=== PATIENT | male | born 1950 | race Two or more races ===

== ENCOUNTER 2016-07-23 18:08 | Emergency (ER) | payer OTHER ==
--- NOTE | ~2016-07-23 | ER ---
PATIENT'S NAME: G[facility]LA [facility] AGE: 66 Y [address] ROOM: [place] [address] LOCATION: [facility] ADMIT DATE: 07/23/2016 ER/Outpatient Report DISCHARGE DATE: 07/23/2016 FAMILY PHYSICIAN: Physician, Unknown ATTENDING PHYSICIAN: Solomon Johnston Time of Arrival: 1826 hours. Time of Evaluation: 1835 hours. CHIEF COMPLAINT: "I can't pee." HISTORY OF PRESENT ILLNESS: The patient is a 66-year-old male who presents to the emergency department today with a chief complaint of "I can't pee." He is accompanied by his son who interprets. He reports he has been unable to pee for the past 2 hours. He reports he has a history of similar episodes which I actually saw him for not too long ago. He reports he had to have a catheter at that time. He has seen Dr. Marquis in the past. Denies any fevers or chills. No nausea or vomiting. No diarrhea or constipation. No other complaints at this time. PAST MEDICAL HISTORY: Urinary retention and enlarged prostate. PAST SURGICAL HISTORY: None. SOCIAL HISTORY: The patient denies any tobacco use. Reports occasional alcohol use. Denies any illicit drug use. ALLERGIES: NO KNOWN DRUG ALLERGIES. MEDICATIONS: Flomax. PRIMARY CARE DOCTOR: Kahlil Polo MD. Sees Dr. Marquis with Urology. REVIEW OF SYSTEMS: All systems are reviewed by myself and negative with the exception of those discussed in the HPI and past medical history. PHYSICAL EXAMINATION: [facility]GE[facility] 66 Y [address] ROOM: [place] [address] LOCATION: [facility] ADMIT DATE: 07/23/2016 ER/Outpatient Report DISCHARGE DATE: 07/23/2016 FAMILY PHYSICIAN: Physician, Unknown ATTENDING PHYSICIAN: Solomon Johnston VITAL SIGNS: Blood pressure 160/74, pulse 84, respiratory rate 20, temperature 98.4 tympanic, and oxygen saturation 97% on room air. GENERAL: The patient is a 66-year-old male who appears his stated age, in mild to moderate acute distress secondary to pain in his abdomen. HEENT: Head: Normocephalic, atraumatic. Pupils are equal, round, and reactive to light. Oropharynx is clear. NECK: Supple. There is no nuchal rigidity. CARDIOVASCULAR: Regular rate and rhythm. No murmurs, rubs, or gallops. LUNGS: Clear to auscultation bilaterally. No wheezes, rales, or rhonchi. ABDOMEN: Soft, mild suprapubic tenderness to palpation. No rebound, rigidity, or guarding. Positive bowel sounds. MUSCULOSKELETAL: The patient moves all 4 extremities. SKIN: Warm and dry with no rashes or lesions noted. LABS AND X-RAYS: Urinalysis obtained shows 50 blood, otherwise unremarkable. IMPRESSION: 1. Urinary retention. 2. Initial visit. EMERGENCY DEPARTMENT COURSE: The patient was brought back to the examination room. Seen and evaluated by myself. A bedside ultrasound was performed by myself which does show an enlarged bladder. A Hutson catheter is placed with about 1 L of urine removed. I have discussed results with the patient. I have recommended a close followup with Dr. Marquis in 2 days for re-evaluation. I have discussed return to care instructions including worsening symptoms or any other concerns to return to the emergency department as soon as possible. The patient is agreeable and son is agreeable, and they are without further questions at this time. DISPOSITION: The patient discharged home in good condition. DO MORALES TELLO/duglasl /[id number] d: 07/24/16 0107 t: 07/25/16 1341, OUTPATIENT REPORT
[2016-07-23 19:06] LABS: BILIRUBIN URINE NEGATIVE (NEGATIVE); BLOOD URINE 50 /UL (NEGATIVE); COLOR URINE YELLOW (YELLOW); GLUCOSE URINE NEGATIVE (NEGATIVE); KETONE URINE NEGATIVE (NEGATIVE); LEUKOCYTES URINE NEGATIVE /UL (NEGATIVE); NITRITE URINE NEGATIVE (NEGATIVE); PROTEIN URINE NEGATIVE (NEGATIVE); TURBIDITY URINE CLEAR (CLEAR); UROBILINOGEN URINE NORMAL (NORMAL)
[2016-07-23 19:14] LABS: BACTERIA URINE NEGATIVE (NEGATIVE); EPITHELIAL URINE NEGATIVE #/HPF (NEGATIVE); RBC URINE RARE #/HPF (NEGATIVE); WBC URINE RARE #/HPF (NEGATIVE)
[2016-08-16] MEDS ORDERED: FLOMAX0.4 MG PO (14:43)
== END 2016-07-23 19:31 | disposition disaster alternative care site (69) ==
LOC: GMED 18:08
PROVIDERS: Emergency Medicine
PROC: 0T9B70Z Drainage of Bladder with Drainage Device, Via Natural or Artificial Opening (ICD-10-PCS; principal; 2016-07-23)
DX: R33.9 Retention of urine, unspecified (principal)

== ENCOUNTER 2016-08-20 08:00 | Day surgery (SDC) | payer OTHER ==
[~2016-08-20] VITALS: Ht 175.3 cm; Wt 76.3 kg
--- NOTE | ~2016-08-20 | OR ---
PATIENT'S NAME: [facility] AGE: 66 Y [address] ROOM: [address] [address] [place] [facility] [place]: 08/20/2016 OR/Procedure Report DISCHARGE DATE: 08/21/2016 FAMILY PHYSICIAN: ЕЛЕНА ALCARAZ ATTENDING PHYSICIAN: Annie Marquis SURGEON: Annie Marquis MD LANGUAGE TRANSLATOR: DATE OF PROCEDURE: 08/20/2016 Corrected copy per provider 08/22/16 AO PREOPERATIVE DIAGNOSIS: Benign prostatic hypertrophy with of history urinary retention. POSTOPERATIVE DIAGNOSIS: Benign prostatic hypertrophy with of history urinary retention. PROCEDURE PERFORMED: Cystoscopy, TURP. ANESTHESIA: General. COMPLICATIONS: None. INDICATION FOR PROCEDURE: The patient is a 66-year-old [place] male with BPH with history of urinary retention. The patient also has a history of elevated PSA. PSA was drawn prior to his procedure. The patient's family preferred to proceed with procedure in spite of not having results of the PSA present. Discussed risks and benefits with them. DETAILS OF PROCEDURE: After informed consent obtained, the patient was taken to the operating room. A general anesthetic was applied. He was placed in dorsal lithotomy position. The groin area was prepped and draped in normal sterile fashion. Cystoscope was introduced into the urethra and bladder without difficulty. Upon entering the bladder, the patient had significant trilobar enlargement. Next, the resectoscope sheath along with the resectoscope was introduced. Resection was begun at the floor of the bladder neck to the level of the verumontanum. The patient has had extensive arterial bleeding with resection, requiring constant fulgurations to control bleeding. This slowed down resection fairly significantly. I was able to continue resecting his left lateral lobe and then the right lateral lobe. I irrigated out the chips and continue resecting lateral lobe tissue and also anterior tissue that was dropping down into the resected area. The bladder was further irrigated of chips. After 1 hour of resection time, I switched over to the button and extensively fulgurated the remainder of the prostate for hemostasis. Following this, a 24-[place] 3-way Hutson catheter was placed on traction. The patient tolerated his procedure well and was transferred to recovery room in good condition. PATIENT'S NAME: [facility] AGE: 66 Y [address] ROOM: [id number] [place], [place] [address] [place] [facility] [place]: 08/20/2016 OR/Procedure Report DISCHARGE DATE: 08/21/2016 FAMILY PHYSICIAN: ЕЛЕНА ALCARAZ ATTENDING PHYSICIAN: Annie Marquis ESTIMATED BLOOD LOSS: 200 mL. MD JOSE ANGEL CARRILLO/modl /[id number] CC: Kahlil Polo MD Corrected copy per provider 08/22/16 AO d: 08/21/16 0108 t: 09/08/16 1227, OPERATIVE SUMMARY
[~2016-08-20 08:00] MED LIST: FLOMAX0.4 MG PO
[2016-08-20] MEDS ORDERED: PREVACID15 MG PO (08:32)
[2016-08-20 08:38] LABS: BASOPHIL # 0.1 K/uL (0.0-0.2); BASOPHIL % 0.7 %; EOSINOPHIL # 0.2 K/uL (0.0-0.5); EOSINOPHIL % 2.1 %; HEMATOCRIT 48.1 % (37.0-53.0); HEMOGLOBIN 15.7 g/dL (11.0-16.0); IMMATURE GRANULOCYTE % 0.5 %; LYMPHOCYTE # 2.6 K/uL (0.8-4.0); LYMPHOCYTE % 29.1 %; MCH 29.9 pg (27.0-34.0); MCHC 32.6 gm/dL (32.0-36.5); MCV 91.6 fl (83.0-98.0); MONOCYTE # 0.7 K/uL (0.0-1.0); MONOCYTE % 7.8 %; MPV 9.7 fl (9.4-12.4); NEUTROPHIL # (ANC) 5.2 K/uL (1.4-9.0); NEUTROPHIL % 59.8 %; NRBC % 0 /100WBC (0-0.00); PLATELET COUNT 296 K/uL (150-450); RBC 5.25 M/uL (3.50-5.50); RDW-CV 13.5 % (11.9-14.6); WBC 8.8 K/uL (4.0-11.0)
[2016-08-20 08:54] LABS: ALBUMIN 3.8 gm/dL (3.5-5.0); ANION GAP 10.6 (10.0-19.0); CALCIUM 8.5 mg/dL (8.5-10.5); CREATININE 1.2 mg/dL (0.6-1.3); POTASSIUM 3.6 mMol/L (3.7-5.1); TOTAL BILIRUBIN 0.5 mg/dL (0.0-1.5); TOTAL PROTEIN 7.3 g/dL (6.0-8.4)
[2016-08-21 05:54] LABS: BASOPHIL % 0.1 %; HEMATOCRIT 40.4 % (37.0-53.0); HEMOGLOBIN 13.2 g/dL (11.0-16.0); IMMATURE GRANULOCYTE # 0.1 K/uL (0.0-0.3); IMMATURE GRANULOCYTE % 0.5 %; LYMPHOCYTE # 1.5 K/uL (0.8-4.0); LYMPHOCYTE % 8.7 %; MCH 30.1 pg (27.0-34.0); MCHC 32.7 gm/dL (32.0-36.5); MONOCYTE # 1.1 K/uL (0.0-1.0); MONOCYTE % 6.3 %; MPV 9.9 fl (9.4-12.4); NEUTROPHIL # (ANC) 14.5 K/uL (1.4-9.0); NEUTROPHIL % 84.4 %; NRBC % 0 /100WBC (0-0.00); PLATELET COUNT 275 K/uL (150-450); RBC 4.39 M/uL (3.50-5.50); RDW-CV 13.9 % (11.9-14.6); WBC 17.2 K/uL (4.0-11.0)
[2016-08-21 06:11] LABS: ALBUMIN 3.2 gm/dL (3.5-5.0); ANION GAP 13.3 (10.0-19.0); BLOOD UREA NITROGEN 16 mg/dL (6-24); CALCIUM 8.6 mg/dL (8.5-10.5); CHLORIDE 103 mMol/L (96-110); CO2 28 mMol/L (22-32); CREATININE 1.1 mg/dL (0.6-1.3); ESTIMATED GFR (MDRD EQUATION) > 60; PHOSPHORUS 4.3 mg/dL (2.5-4.9); POTASSIUM 4.3 mMol/L (3.7-5.1); SODIUM 140 mMol/L (135-145)
[2016-08-21] MEDS ORDERED: PROSCAR5 MG PO (17:57)
[2016-08-21] MEDS ORDERED: LEVAQUIN 250 M250 MG PO (17:58)
[2016-08-21] MEDS ORDERED: NEOSPORIN1 PKT TOP (17:59)
[2016-08-21] MEDS ORDERED: TYLENOL WITH C1 EACH PO (18:00)
== END 2016-08-21 18:30 | disposition disaster alternative care site (69) ==
LOC: GMSU 08:00 → GSDC 08:00 → EDSTATUS 14:00 → GSDC 08-21 18:30
PROVIDERS: Urology
PROC: 0VT08ZZ Resection of Prostate, Via Natural or Artificial Opening Endoscopic (ICD-10-PCS; principal; 2016-08-20)
DX: N40.1 Benign prostatic hyperplasia with lower urinary tract symptoms (principal); R33.8 Other retention of urine; Z87.891 Personal history of nicotine dependence
CPT/HCPCS: J1956; J3010; J7050; J7120